=== PATIENT | female | born 1965 | race Caucasian/White ===

== ENCOUNTER 2019-06-19 07:03 | Inpatient (IN) | payer MEDICAID ==
[~2019-06-19] VITALS: Ht 177.8 cm; Wt 103.2 kg
[~2019-06-19 07:03] MED LIST: ESOM40CA PO; FEXO180T72 PO; HYDR-3240; HYDR25TA6 PO; META800T PO; NORE-137 PO; VALS40TA2 PO; VALS80TA3 PO
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
--- NOTE | 2019-06-19 07:58 | NUR ---
ERMD IN TO EVAL PT, PT TO CONT PULSE OX, CARD MONITOR, BP. LABS AND CHEST DX COMPLETED. PT APPEARS ANXIOUS, STATES SHE DOES NOT WANT TO TAKE ANY MEDS FOR ANXIETY.
[2019-06-19] MEDS ORDERED: LORazepam 1MG TABLET PO PRN (08:00)
[2019-06-19 08:20] LABS: BASOPHILS # (AUTO) 0.04 x10^3/uL (0-0.1); BASOPHILS % (AUTO) 1 % (0-1); EOSINOPHILS # (AUTO) 0.01 x10^3/uL (0-0.4); EOSINOPHILS % (AUTO) 0 % (1-7); LYMPHOCYTES # (AUTO) 0.71 x10^3/uL (1-3.4); LYMPHOCYTES % (AUTO) 9 % (22-44); MD NO; MEAN CORPUSCULAR HEMOGLOBIN 29.8 pg (27.0-34.8); MEAN CORPUSCULAR HGB CONC 33.2 g/dL (32.4-35.8); MEAN CORPUSCULAR VOLUME 89.8 fL (80-100); MEAN PLATELET VOLUME 9.6 fL (7.4-10.4); MONOCYTES # (AUTO) 0.73 x10^3/uL (0.2-0.8); MONOCYTES % (AUTO) 9 % (2-9); NEUTROPHILS # (AUTO) 6.57 x10^3/uL (1.8-6.8); NEUTROPHILS % (AUTO) 82 % (42-75); PLATELET COUNT 158 x10^3/uL (130-400); RED BLOOD COUNT 5.08 x10^6/uL (3.82-5.3); RED CELL DISTRIBUTION WIDTH 13.9 % (9.6-15.2)
[2019-06-19 08:30] LABS: ALBUMIN 3.7 g/dL (3.4-5.0); ANION GAP 10 mmol/L (5-15); CALCIUM 9.1 mg/dL (8.5-10.1); CHLORIDE 96 mmol/L (98-107)
[2019-06-19 08:35] LABS: ALANINE AMINOTRANSFERASE 121 U/L (12-78); ALKALINE PHOSPHATASE 117 U/L (45-117); BILIRUBIN,TOTAL 1.5 mg/dL (0.2-1.0); CREATININE 1.13 mg/dL (0.55-1.02); T4 (THYROXINE) 13.9 mcg/dL (4.8-13.9); TOTAL PROTEIN 8.2 g/dL (6.4-8.2); TROPONIN I < 0.015 ng/mL (0.000-0.045)
--- NOTE | 2019-06-19 09:57 | NUR ---
PT TO BE ADMITTED, PIV INITIATED. PT UPDATED ON POC. PT VERY TEARFUL, CRYING IN ROOM, SHE CONTINUES TO REFUSE ATIVAN DOSE. PT CALMED ABLE, NO OTHER NEEDS AT THIS TIME
--- NOTE | 2019-06-19 11:00 | NUR ---
PT REMAINS TEARFUL, C/O PAIN AT IV SITE. SITE C/D/I NO EVIDENCE OF INFILTRATION. SITE WRAP FOR COMFORT
--- NOTE | 2019-06-19 11:45 | NUR ---
TASK RN: RECEIVED REPORT FROM KARL AVILA.
--- NOTE | 2019-06-19 12:05 | NUR ---
TASK RN: PT REQUESTING TO RESTART PIV. PT REQUESTS NEW IV IN LEFT AC AREA. NEW IV PLACED. NO COMPLICATIONS. PT STATES "THIS ONE FEELS MUCH BETTER." D/C RIGHT PIV WITH TIP INTACT. PRESSURE DRESSING APPLIED. HARRISON
--- NOTE | 2019-06-19 12:27 | NUR ---
TASK RN: BEDSIDE REPORT TO KARL AVILA.
[2019-06-19] MEDS ORDERED: ACETAMINOPHEN 325 MG TABLET PO PRN (13:00)
[2019-06-19] MEDS ORDERED: ONDANSETRON ODT 4 MG PO PRN (13:00)
[2019-06-19] MEDS ORDERED: ONDANSETRON 2MG/ML, 2ML IVPush PRN (13:00)
[2019-06-19] MEDS ORDERED: POTASSIUM CHLORIDE 20 MEQ PACKET PO ONE (13:00)
[2019-06-19 13:34] LABS: HCT (SEDRATE) 46.2 % (34.6-47.8)
[2019-06-19] MEDS ORDERED: ENOXAPARIN 40 MG/0.4 ML ONE (13:41)
--- NOTE | 2019-06-19 13:46 | NUR ---
PT IN IMAGING AT THIS TIME, LUNCH TRAY ORDERED FOR PT, REQUEST FOR MEDICATIONS SENT TO PHARM
[2019-06-19 13:50] LABS: TROPONIN I < 0.015 ng/mL (0.000-0.045)
--- NOTE | 2019-06-19 13:55 | NUR ---
REPORT GIVEN TO MARILU BLACKBURN
[2019-06-19 14:08] LABS: HEMOGLOBIN A1C 5.5 % (4.2-6.3)
[2019-06-19] MEDS ORDERED: GADOTERATE 10 MMOL/20 ML SYR ONE (14:38)
[2019-06-19] MEDS: TEMPLATE NON-FORMULARY MED. (Metaxalone** 800 MG) PO SCH ×2 (16:00→21:00)
[2019-06-19 16:34] VITALS: BP 112/77
[2019-06-19] MEDS: ENOXAPARIN 40 MG/0.4 ML SQ SCH (16:34)
[2019-06-19] MEDS: NEUTRA PHOS K 250 MG TABLET PO SCH ×2 (16:34→20:09)
[2019-06-19] MEDS: GABAPENTIN 400 MG CAPSULE PO SCH ×2 (16:34→20:16)
[2019-06-19 16:35] VITALS: BP 107/78
[2019-06-19 16:36] VITALS: BP 107/74
[2019-06-19 18:49] LABS: MICROSCOPIC INDICATED
[2019-06-19 19:02] LABS: CULTURE INDICATED? YES
[2019-06-19 19:18] LABS: TROPONIN I < 0.015 ng/mL (0.000-0.045)
[2019-06-19] MEDS ORDERED: LEVO50TA5 PO (20:26)
[2019-06-19 20:42] VITALS: BP 95/67
[2019-06-20] VITALS (7 sets, daily range): BP systolic 93–139; BP diastolic 61–92
[2019-06-20] MEDS ORDERED: PANTOPROZOLE 40MG TABLET PO SCH (06:00)
[2019-06-20 06:23] LABS: BASOPHILS # (AUTO) 0.04 x10^3/uL (0-0.1); BASOPHILS % (AUTO) 0 % (0-1); EOSINOPHILS # (AUTO) 0.03 x10^3/uL (0-0.4); EOSINOPHILS % (AUTO) 0 % (1-7); LYMPHOCYTES # (AUTO) 0.96 x10^3/uL (1-3.4); LYMPHOCYTES % (AUTO) 11 % (22-44); MD NO; MEAN CORPUSCULAR HEMOGLOBIN 29.3 pg (27.0-34.8); MEAN CORPUSCULAR HGB CONC 32.8 g/dL (32.4-35.8); MEAN CORPUSCULAR VOLUME 89.1 fL (80-100); MEAN PLATELET VOLUME 9.3 fL (7.4-10.4); MONOCYTES # (AUTO) 1.08 x10^3/uL (0.2-0.8); MONOCYTES % (AUTO) 12 % (2-9); NEUTROPHILS # (AUTO) 6.91 x10^3/uL (1.8-6.8); NEUTROPHILS % (AUTO) 77 % (42-75); PLATELET COUNT 160 x10^3/uL (130-400); RED BLOOD COUNT 5.12 x10^6/uL (3.82-5.3); RED CELL DISTRIBUTION WIDTH 13.8 % (9.6-15.2)
[2019-06-20 06:33] LABS: ALBUMIN 3.6 g/dL (3.4-5.0); ANION GAP 9 mmol/L (5-15); CHLORIDE 98 mmol/L (98-107)
[2019-06-20 06:37] LABS: ALANINE AMINOTRANSFERASE 98 U/L (12-78); ALKALINE PHOSPHATASE 115 U/L (45-117); BILIRUBIN,TOTAL 1.3 mg/dL (0.2-1.0); CREATININE 0.93 mg/dL (0.55-1.02); TOTAL PROTEIN 7.9 g/dL (6.4-8.2)
[2019-06-20] MEDS ORDERED: NEXIUM 40 MG HOMEMEDPO SCH (09:00)
[2019-06-20] MEDS ORDERED: ALLEGRA 180 MG HOMEMEDPO SCH (09:00)
[2019-06-20] MEDS ORDERED: CETIRIZINE 10 MG TABLET PO SCH (09:00)
[2019-06-20] MEDS: GABAPENTIN 400 MG CAPSULE PO SCH ×3 (09:26→21:23)
[2019-06-20] MEDS: TEMPLATE NON-FORMULARY MED. (Metaxalone** 800 MG) PO SCH ×2 (09:27→17:56)
[2019-06-20] MEDS: NEUTRA PHOS K 250 MG TABLET PO SCH ×3 (09:27→21:22)
[2019-06-20] MEDS ORDERED: LEVOTHYROXINE 50 MCG TABLET PO SCH (11:30)
[2019-06-20] MEDS ORDERED: POTASSIUM CHLORIDE 40 MEQ in SODIUM CHLORIDE 0.45% 1,000 ML IV SCH (11:30)
[2019-06-20] MEDS: ENOXAPARIN 40 MG/0.4 ML SQ SCH (17:56)
[2019-06-20 18:38] LABS: BASOPHILS # (AUTO) 0.04 x10^3/uL (0-0.1); BASOPHILS % (AUTO) 1 % (0-1); EOSINOPHILS # (AUTO) 0.11 x10^3/uL (0-0.4); EOSINOPHILS % (AUTO) 1 % (1-7); LYMPHOCYTES # (AUTO) 1.49 x10^3/uL (1-3.4); LYMPHOCYTES % (AUTO) 17 % (22-44); MD NO; MEAN CORPUSCULAR HEMOGLOBIN 29.5 pg (27.0-34.8); MEAN CORPUSCULAR HGB CONC 32.6 g/dL (32.4-35.8); MEAN CORPUSCULAR VOLUME 90.4 fL (80-100); MEAN PLATELET VOLUME 10.2 fL (7.4-10.4); MONOCYTES % (AUTO) 10 % (2-9); NEUTROPHILS # (AUTO) 6.46 x10^3/uL (1.8-6.8); NEUTROPHILS % (AUTO) 72 % (42-75); PLATELET COUNT 180 x10^3/uL (130-400); RED BLOOD COUNT 5.13 x10^6/uL (3.82-5.3); RED CELL DISTRIBUTION WIDTH 14.1 % (9.6-15.2)
[2019-06-20] MEDS: CEFTRIAXONE PMX 1GM/50ML 50 ML IV SCH (23:04)
[2019-06-21 03:50] VITALS: BP 123/82
[2019-06-21] MEDS: NEXIUM 40 MG HOMEMEDPO SCH (06:00)
[2019-06-21] MEDS: ALLEGRA 180 MG HOMEMEDPO SCH (06:00)
[2019-06-21] MEDS: LEVOTHYROXINE 50 MCG TABLET PO SCH (06:06)
[2019-06-21] MEDS: GABAPENTIN 400 MG CAPSULE PO SCH ×3 (06:06→21:17)
[2019-06-21] MEDS: NEUTRA PHOS K 250 MG TABLET PO SCH ×3 (06:06→21:17)
[2019-06-21 06:24] LABS: ALANINE AMINOTRANSFERASE 94 U/L (12-78); ALBUMIN 3.3 g/dL (3.4-5.0); ANION GAP 9 mmol/L (5-15); CALCIUM 8.6 mg/dL (8.5-10.1); CHLORIDE 99 mmol/L (98-107); CREATININE 0.73 mg/dL (0.55-1.02)
[2019-06-21 06:26] LABS: ALKALINE PHOSPHATASE 116 U/L (45-117); TOTAL PROTEIN 7.9 g/dL (6.4-8.2)
[2019-06-21 07:11] VITALS: BP 122/79
[2019-06-21] MEDS: POTASSIUM CHLORIDE 20 MEQ TAB.ER.PRT PO SCH ×2 (08:45→16:04)
[2019-06-21 10:58] LABS: CULTURE INDICATED? NO; MICROSCOPIC NOT IND
[2019-06-21 11:06] LABS: HCT (SEDRATE) 44.5 % (34.6-47.8)
[2019-06-21] MEDS ORDERED: POTASSIUM CHLORIDE 20 MEQ TAB.ER.PRT PO ONE (12:00)
[2019-06-21 12:07] VITALS: BP 131/86
[2019-06-21 15:51] LABS: POTASSIUM,URINE RANDOM 33 mmol/L; SODIUM,URINE RANDOM 7 mmol/L
[2019-06-21] MEDS: ENOXAPARIN 40 MG/0.4 ML SQ SCH (16:04)
[2019-06-21 16:05] VITALS: BP 126/84
[2019-06-21 20:11] VITALS: BP 111/75
[2019-06-21] MEDS: CEFTRIAXONE PMX 1GM/50ML 50 ML IV SCH (23:00)
[2019-06-22] MEDS: CEFTRIAXONE PMX 1GM/50ML 50 ML IV SCH (00:17)
[2019-06-22 00:20] VITALS: BP 119/80
[2019-06-22 04:00] VITALS: BP 114/70
[2019-06-22] MEDS: GABAPENTIN 400 MG CAPSULE PO SCH (05:10)
[2019-06-22] MEDS: LEVOTHYROXINE 50 MCG TABLET PO SCH (05:10)
[2019-06-22] MEDS: NEUTRA PHOS K 250 MG TABLET PO SCH (05:12)
[2019-06-22] MEDS: ALLEGRA 180 MG HOMEMEDPO SCH (05:13)
[2019-06-22] MEDS: NEXIUM 40 MG HOMEMEDPO SCH (05:14)
[2019-06-22 06:00] LABS: ANION GAP 6 mmol/L (5-15); CALCIUM 8.7 mg/dL (8.5-10.1); CHLORIDE 101 mmol/L (98-107)
[2019-06-22 06:02] LABS: CREATININE 0.81 mg/dL (0.55-1.02)
[2019-06-22 07:53] VITALS: BP 128/79
[2019-06-22] MEDS: POTASSIUM CHLORIDE 20 MEQ TAB.ER.PRT PO SCH (08:19)
[2019-06-22] MEDS ORDERED: POTA20TA6 PO (09:58)
[2019-06-22] MEDS ORDERED: PHOS250T3 PO (09:58)
[2019-06-22] MEDS ORDERED: GABA-827 PO (09:58)
[2019-06-22] MEDS ORDERED: FLU VACC QS2019-20 36MOS UP/PF 0.5 ML IM-VACC ONE (11:30)
== END 2019-06-22 11:48 | disposition home or self-care (01) | DRG 207 ==
LOC: ED 10:08 → EDIP 10:10 → 4WST 14:44 → 4EST 06-20 04:04
PROVIDERS: ADMIT Internal Medicine; ATTEND Internal Medicine
DX: I95.9 Hypotension, unspecified (principal); E87.1 Hypo-osmolality and hyponatremia; K76.0 Fatty (change of) liver, not elsewhere classified; E03.9 Hypothyroidism, unspecified; E66.9 Obesity, unspecified; Z68.32 Body mass index [BMI] 32.0-32.9, adult; Z88.6 Allergy status to analgesic agent; Z88.8 Allergy status to other drugs, medicaments and biological substances; E86.0 Dehydration; E87.6 Hypokalemia; F12.90 Cannabis use, unspecified, uncomplicated; F32.9 Major depressive disorder, single episode, unspecified; G89.29 Other chronic pain; I10 Essential (primary) hypertension; Z53.20 Procedure and treatment not carried out because of patient's decision for unspecified reasons; Z63.4 Disappearance and death of family member; Z80.7 Family history of other malignant neoplasms of lymphoid, hematopoietic and related tissues; Z87.891 Personal history of nicotine dependence; Z98.1 Arthrodesis status
CPT/HCPCS: 36415; 70450; 70553; 71045; 72156; 76700; 80048; 80053; 81001; 81003; 82533; 82570; 83036; 83735; 84100; 84132; 84133; 84300; 84436; 84443; 84484; 85025; 85651; 86140; 87040; 87086; 90686; 93005; 93308; 93321; 93325; 99285; G0378; J0696; J1650; J3480; A9575

== ENCOUNTER 2019-09-05 13:23 | Outpatient (CLI) | payer MEDICAID ==
[~2019-09-05 13:23] MED LIST changes: +GABA-827 PO; +LEVO50TA5 PO; +PHOS250T3 PO; +POTA20TA6 PO
== END 2019-09-05 23:59 | disposition home or self-care (01) ==
LOC: RAD 13:23
DX: M48.02 Spinal stenosis, cervical region (principal); M47.819 Spondylosis without myelopathy or radiculopathy, site unspecified
CPT/HCPCS: 72141

== ENCOUNTER 2019-10-29 13:03 | Inpatient (IN) | payer MEDICAID ==
[~2019-10-29] VITALS: Ht 177.8 cm; Wt 112.8 kg
[2019-10-29] MEDS ORDERED: SODIUM CHLORIDE 0.9% 1,000 ML IV ONE (13:10)
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
[2019-10-29] MEDS ORDERED: PLEASE ENTER HEIGHT AND WEIGHT MC SCH (13:30)
[2019-10-29] MEDS ORDERED: SODIUM CHLORIDE FLUSH 10ML SYR IVF ONE (13:30)
[2019-10-29 13:41] LABS: BASOPHILS % (AUTO) 0 % (0-1); EOSINOPHILS % (AUTO) 0 % (1-7); LYMPHOCYTES # (AUTO) 1.23 x10^3/uL (1-3.4); LYMPHOCYTES % (AUTO) 11 % (22-44); MD NO; MEAN CORPUSCULAR HEMOGLOBIN 28.7 pg (27.0-34.8); MEAN CORPUSCULAR HGB CONC 32.8 g/dL (32.4-35.8); MEAN CORPUSCULAR VOLUME 87.5 fL (80-100); MEAN PLATELET VOLUME 9.1 fL (7.4-10.4); MONOCYTES # (AUTO) 0.24 x10^3/uL (0.2-0.8); MONOCYTES % (AUTO) 2 % (2-9); NEUTROPHILS # (AUTO) 9.41 x10^3/uL (1.8-6.8); NEUTROPHILS % (AUTO) 87 % (42-75); PLATELET COUNT 354 x10^3/uL (130-400); RED BLOOD COUNT 4.18 x10^6/uL (3.82-5.3); RED CELL DISTRIBUTION WIDTH 15.7 % (9.6-15.2)
[2019-10-29 13:53] LABS: ALANINE AMINOTRANSFERASE 53 U/L (12-78); ALBUMIN 1.7 g/dL (3.4-5.0); ANION GAP 10 mmol/L (5-15); CALCIUM 8.1 mg/dL (8.5-10.1); CHLORIDE 98 mmol/L (98-107)
[2019-10-29 13:55] LABS: ALKALINE PHOSPHATASE 198 U/L (45-117); BILIRUBIN,TOTAL 4.7 mg/dL (0.2-1.0); CREATININE 1.93 mg/dL (0.55-1.02); TOTAL PROTEIN 7.4 g/dL (6.4-8.2)
--- NOTE | 2019-10-29 14:30 | NUR ---
REPORT TO HINA FOR BREAK
--- NOTE | 2019-10-29 14:42 | NUR ---
TASK RN: PT PROVIDED WITH WARM BLANKET. HUBERT PAWS WARMER. IV NS INFUSING ORDERED. PT AWARE OF WAITING FOR ADMIT ORDERS/ROOM ASSIGNMENT. NO OTHER NEEDS EXPRESSED AT THIS TIME.
--- NOTE | 2019-10-29 15:05 | NUR ---
REPORT TO JAY BARAJAS
[2019-10-29] MEDS ORDERED: ONDANSETRON 2MG/ML, 2ML IVPush PRN (15:30)
[2019-10-29] MEDS ORDERED: ONDANSETRON ODT 4 MG PO PRN (15:30)
--- NOTE | 2019-10-29 15:35 | NUR ---
REPORT TO AI BARAJAS. PT INFORMED SHE IS READY FOR TRANSPORT, AND THAT THE TV UP IN HER ROOM SHOULD WORK BETTER THAN THE ONE IN HER ROOM NOW. PT VERY UPSET THAT WE CAN'T FIX THE TV FOR HER RIGHT NOW. PT STABLE.
[2019-10-29] MEDS: Metaxalone** 800 MG HOMEMEDPO SCH ×2 (16:00→21:00)
[2019-10-29] MEDS: HYDROcodone/APAP 5/325 TABLET PO SCH (16:58)
[2019-10-29] MEDS: CEFTRIAXONE PMX 2GM/50ML 50 ML IV SCH (17:18)
[2019-10-29] MEDS: LACTOBACILLUS CHEW TABLET PO SCH ×3 (18:00→21:00)
[2019-10-29] MEDS: GABAPENTIN 400 MG CAPSULE PO SCH (18:30)
[2019-10-29] MEDS: NEUTRA PHOS K 250 MG TABLET PO SCH (18:31)
[2019-10-29] MEDS: NS + 40MEQ KCL 1,000 ML IV SCH (18:31)
[2019-10-29 19:08] VITALS: BP 100/67
[2019-10-29] MEDS: POTASSIUM CHLORIDE 20 MEQ TAB.ER.PRT PO SCH (21:32)
[2019-10-29] MEDS: HEPARIN 5,000 UNITS/ML, 1ML SQ SCH (21:36)
[2019-10-30] MEDS: HYDROcodone/APAP 5/325 TABLET PO SCH ×3 (01:15→16:58)
[2019-10-30] MEDS: GABAPENTIN 400 MG CAPSULE PO SCH ×3 (01:15→17:03)
[2019-10-30] MEDS: NEUTRA PHOS K 250 MG TABLET PO SCH ×3 (01:15→17:04)
[2019-10-30 01:24] VITALS: BP 104/69
[2019-10-30] MEDS: HEPARIN 5,000 UNITS/ML, 1ML SQ SCH ×3 (05:23→21:18)
[2019-10-30 05:50] LABS: ALANINE AMINOTRANSFERASE 39 U/L (12-78); ALBUMIN 1.5 g/dL (3.4-5.0); ANION GAP 8 mmol/L (5-15); CALCIUM 7.9 mg/dL (8.5-10.1); CHLORIDE 108 mmol/L (98-107); CREATININE 1.13 mg/dL (0.55-1.02)
[2019-10-30 05:52] LABS: ALKALINE PHOSPHATASE 148 U/L (45-117); BILIRUBIN,TOTAL 2.8 mg/dL (0.2-1.0); TOTAL PROTEIN 6.2 g/dL (6.4-8.2)
[2019-10-30] MEDS ORDERED: PANTOPRAZOLE 40MG TABLET PO SCH (06:00)
[2019-10-30 06:08] LABS: MEAN CORPUSCULAR HEMOGLOBIN 28.8 pg (27.0-34.8); MEAN CORPUSCULAR HGB CONC 32.9 g/dL (32.4-35.8); MEAN CORPUSCULAR VOLUME 87.4 fL (80-100); MEAN PLATELET VOLUME 9.4 fL (7.4-10.4); PLATELET COUNT 279 x10^3/uL (130-400); RED BLOOD COUNT 3.43 x10^6/uL (3.82-5.3); RED CELL DISTRIBUTION WIDTH 15.8 % (9.6-15.2)
[2019-10-30 06:26] LABS: BASOPHILS % (AUTO) 0 % (0-1); EOSINOPHILS # (AUTO) 0.13 x10^3/uL (0-0.4); EOSINOPHILS % (AUTO) 2 % (1-7); LYMPHOCYTES # (AUTO) 1.06 x10^3/uL (1-3.4); LYMPHOCYTES % (AUTO) 16 % (22-44); MD SCAN; MONOCYTES # (AUTO) 0.45 x10^3/uL (0.2-0.8); MONOCYTES % (AUTO) 7 % (2-9); NEUTROPHILS # (AUTO) 5.01 x10^3/uL (1.8-6.8); NEUTROPHILS % (AUTO) 75 % (42-75)
[2019-10-30 08:00] VITALS: BP 101/71
[2019-10-30] MEDS: POTASSIUM CHLORIDE 20 MEQ TAB.ER.PRT PO SCH ×2 (08:08→21:17)
[2019-10-30] MEDS: LACTOBACILLUS CHEW TABLET PO SCH ×3 (08:08→21:00)
[2019-10-30] MEDS: Metaxalone** 800 MG HOMEMEDPO SCH ×3 (08:41→21:00)
[2019-10-30] MEDS ORDERED: LEVOTHYROXINE 50 MCG TABLET PO SCH (09:00)
[2019-10-30] MEDS ORDERED: LORATADINE 10 MG TABLET PO SCH (09:00)
[2019-10-30] MEDS ORDERED: CHLORHEXIDINE 15 ML UDC ONE (09:07)
[2019-10-30] MEDS ORDERED: CHLORHEXIDINE 15 ML UDC MM ONE (09:30)
[2019-10-30] MEDS ORDERED: SUCCINYLCHOLINE 20 MG/ML, 10ML ONE (09:48)
[2019-10-30] MEDS ORDERED: PROPOFOL 10 MG/ML, 20ML ONE (09:48)
[2019-10-30] MEDS ORDERED: FENTANYL PF 100 MCG/2ML IV PRN (10:30)
[2019-10-30] MEDS ORDERED: ACETAMINOPHEN 325 MG TABLET PO PRN (10:30)
[2019-10-30] MEDS ORDERED: OMNIPAQUE 350 MG/ML, 50 ML BOTTLE ONE (10:30)
[2019-10-30] MEDS ORDERED: ONDANSETRON 2MG/ML, 2ML IV PRN (10:30)
[2019-10-30 12:25] VITALS: BP 107/76
[2019-10-30] MEDS: NS + 40MEQ KCL 1,000 ML IV SCH (15:25)
[2019-10-30] MEDS: CEFTRIAXONE PMX 2GM/50ML 50 ML IV SCH (17:31)
[2019-10-30 20:28] VITALS: BP 112/76
[2019-10-31 00:47] VITALS: BP 136/93
[2019-10-31] MEDS: NEUTRA PHOS K 250 MG TABLET PO SCH ×3 (00:53→18:34)
[2019-10-31] MEDS: HYDROcodone/APAP 5/325 TABLET PO SCH ×2 (00:53→08:54)
[2019-10-31] MEDS: GABAPENTIN 400 MG CAPSULE PO SCH ×3 (00:53→15:49)
[2019-10-31] MEDS: HEPARIN 5,000 UNITS/ML, 1ML SQ SCH ×3 (05:00→22:31)
[2019-10-31 05:06] LABS: BASOPHILS # (AUTO) 0.04 x10^3/uL (0-0.1); BASOPHILS % (AUTO) 1 % (0-1); EOSINOPHILS % (AUTO) 3 % (1-7); LYMPHOCYTES # (AUTO) 1.74 x10^3/uL (1-3.4); LYMPHOCYTES % (AUTO) 25 % (22-44); MD NO; MEAN CORPUSCULAR HEMOGLOBIN 28.4 pg (27.0-34.8); MEAN CORPUSCULAR HGB CONC 32.6 g/dL (32.4-35.8); MONOCYTES # (AUTO) 0.29 x10^3/uL (0.2-0.8); MONOCYTES % (AUTO) 4 % (2-9); NEUTROPHILS # (AUTO) 4.71 x10^3/uL (1.8-6.8); NEUTROPHILS % (AUTO) 68 % (42-75); PLATELET COUNT 375 x10^3/uL (130-400); RED BLOOD COUNT 3.75 x10^6/uL (3.82-5.3); RED CELL DISTRIBUTION WIDTH 16.5 % (9.6-15.2)
[2019-10-31 05:13] LABS: ALBUMIN 1.7 g/dL (3.4-5.0); ANION GAP 7 mmol/L (5-15); CALCIUM 8.1 mg/dL (8.5-10.1); CHLORIDE 108 mmol/L (98-107)
[2019-10-31 05:18] LABS: ALANINE AMINOTRANSFERASE 39 U/L (12-78); ALKALINE PHOSPHATASE 159 U/L (45-117); BILIRUBIN,TOTAL 1.6 mg/dL (0.2-1.0); TOTAL PROTEIN 6.7 g/dL (6.4-8.2)
[2019-10-31] MEDS: LEVOTHYROXINE 50 MCG TABLET PO SCH (05:54)
[2019-10-31] MEDS: NS + 40MEQ KCL 1,000 ML IV SCH (05:54)
[2019-10-31 07:28] VITALS: BP 112/76
[2019-10-31] MEDS ORDERED: BUPIVACAINE/PF-EPI 0.5% 1:200K ONE (07:41)
[2019-10-31] MEDS: SODIUM CHLORIDE 0.9% 1,000 ML IV SCH ×2 (08:46→22:31)
[2019-10-31] MEDS: POTASSIUM CHLORIDE 20 MEQ TAB.ER.PRT PO SCH ×2 (08:54→22:34)
[2019-10-31] MEDS: Metaxalone** 800 MG HOMEMEDPO SCH ×3 (08:54→21:00)
[2019-10-31] MEDS: LACTOBACILLUS CHEW TABLET PO SCH ×3 (08:55→21:00)
[2019-10-31] MEDS ORDERED: FENTANYL PF 250 MCG/5ML ONE (11:43)
[2019-10-31] MEDS ORDERED: MIDAZOLAM 1 MG/ML, 2ML ONE (11:43)
[2019-10-31] MEDS ORDERED: PROPOFOL 50 ML ONE (11:43)
[2019-10-31] MEDS ORDERED: BUPIVACAINE/PF-EPI 0.5% 1:200K INFIL ONE (12:13)
[2019-10-31] MEDS ORDERED: LABETALOL 5MG/ML, 20ML IV PRN (12:30)
[2019-10-31] MEDS ORDERED: PROMETHAZINE 25 MG/ML, 1ML IV PRN (12:30)
[2019-10-31] MEDS ORDERED: DIAZEPAM 5 MG/ML, 2ML IVPush PRN (12:30)
[2019-10-31] MEDS ORDERED: DIPHENHYDRAMINE 50 MG/ML, 1ML IVPush PRN (12:30)
[2019-10-31] MEDS ORDERED: ROCURONIUM 10MG/ML,5ML ONE (12:30)
[2019-10-31] MEDS ORDERED: MEPERIDINE/PF 25MG/ML,1ML IVPush PRN (12:30)
[2019-10-31] MEDS ORDERED: ACETAMINOPHEN 325 MG TABLET PO PRN (12:30)
[2019-10-31] MEDS ORDERED: MIDAZOLAM 1 MG/ML, 2ML IV PRN (12:30)
[2019-10-31] MEDS ORDERED: ONDANSETRON 2MG/ML, 2ML IV PRN (12:30)
[2019-10-31] MEDS ORDERED: EPHEDRINE 50 MG/ML, 1ML IM PRN (12:30)
[2019-10-31] MEDS ORDERED: ONDANSETRON ODT 8 MG PO PRN (12:30)
[2019-10-31] MEDS ORDERED: EPHEDRINE 50 MG/ML, 1ML IVPush PRN (12:30)
[2019-10-31] MEDS ORDERED: OXYcodone 5 MG/5 ML ORAL.SOL UDC PO PRN (12:30)
[2019-10-31] MEDS ORDERED: SUCCINYLCHOLINE 20 MG/ML, 10ML ONE (12:30)
[2019-10-31] MEDS ORDERED: DEXAMETHASONE 4 MG/ML, 1ML ONE (12:36)
[2019-10-31] MEDS ORDERED: ONDANSETRON 2MG/ML, 2ML ONE (12:36)
[2019-10-31] MEDS ORDERED: ACETAMINOPHEN 650 MG/20.3 ML UDC ONE (13:36)
[2019-10-31] MEDS ORDERED: FENTANYL PF 100 MCG/2ML ONE (13:36)
[2019-10-31] MEDS ORDERED: OXYcodone 5 MG/5 ML ORAL.SOL UDC ONE (13:36)
[2019-10-31] MEDS: FENTANYL PF 100 MCG/2ML IV PRN ×2 (13:42→13:47)
[2019-10-31] MEDS ORDERED: HYDROmorphone 1 MG/ML, 1ML INJ ONE (13:51)
[2019-10-31] MEDS: HYDROmorphone 2 MG/ML, 1ML IVPush PRN ×2 (13:54→14:04)
[2019-10-31 15:20] VITALS: BP 134/85
[2019-10-31] MEDS: KETOROLAC 30 MG/1 ML IV PRN (15:50)
[2019-10-31] MEDS: HYDROcodone/APAP 5/325 TABLET PO PRN ×2 (15:51→22:30)
[2019-10-31] MEDS ORDERED: MORPHINE SULFATE 4 MG/ML, 1ML IVPush PRN (16:00)
[2019-10-31] MEDS: CEFTRIAXONE PMX 2GM/50ML 50 ML IV SCH (18:35)
[2019-10-31 19:30] VITALS: BP 124/75
[2019-11-01] VITALS: BP 137/89
[2019-11-01 02:58] VITALS: BP 118/76
[2019-11-01] MEDS: NEUTRA PHOS K 250 MG TABLET PO SCH ×3 (03:02→17:55)
[2019-11-01] MEDS: KETOROLAC 30 MG/1 ML IV PRN ×2 (03:02→16:50)
[2019-11-01] MEDS: GABAPENTIN 400 MG CAPSULE PO SCH ×3 (03:02→17:55)
[2019-11-01 04:42] VITALS: BP 133/86
[2019-11-01 05:44] LABS: ANION GAP 8 mmol/L (5-15); CALCIUM 7.6 mg/dL (8.5-10.1); CHLORIDE 111 mmol/L (98-107)
[2019-11-01 05:45] LABS: % IRON SATURATION 57 % (20-55); CREATININE 0.79 mg/dL (0.55-1.02); IRON LEVEL 99 mcg/dL (50-170); TOTAL IRON BINDING CAPACITY 175 mcg/dL (250-450)
[2019-11-01] MEDS: HEPARIN 5,000 UNITS/ML, 1ML SQ SCH ×3 (05:57→23:30)
[2019-11-01] MEDS: LEVOTHYROXINE 50 MCG TABLET PO SCH (05:58)
[2019-11-01] MEDS: HYDROcodone/APAP 5/325 TABLET PO PRN ×3 (06:10→19:03)
[2019-11-01 06:42] VITALS: BP 132/88
[2019-11-01] MEDS: POTASSIUM CHLORIDE 20 MEQ TAB.ER.PRT PO SCH ×2 (08:46→21:00)
[2019-11-01] MEDS: Metaxalone** 800 MG HOMEMEDPO SCH ×3 (08:46→23:30)
[2019-11-01] MEDS: LACTOBACILLUS CHEW TABLET PO SCH ×3 (08:47→21:00)
[2019-11-01 08:57] LABS: ALANINE AMINOTRANSFERASE 39 U/L (12-78); ALBUMIN 1.6 g/dL (3.4-5.0)
[2019-11-01 08:59] LABS: ALKALINE PHOSPHATASE 145 U/L (45-117); BILIRUBIN,TOTAL 1.1 mg/dL (0.2-1.0); TOTAL PROTEIN 6.2 g/dL (6.4-8.2)
[2019-11-01] MEDS: SODIUM CHLORIDE 0.9% 1,000 ML IV SCH (12:04)
[2019-11-01 13:32] VITALS: BP 135/82
[2019-11-01] MEDS: CEFTRIAXONE PMX 2GM/50ML 50 ML IV SCH (17:55)
[2019-11-01 18:53] VITALS: BP 147/85
[2019-11-02] MEDS: KETOROLAC 30 MG/1 ML IV PRN (00:07)
[2019-11-02 00:40] VITALS: BP 135/84
[2019-11-02] MEDS: GABAPENTIN 400 MG CAPSULE PO SCH ×2 (01:32→08:12)
[2019-11-02] MEDS: HYDROcodone/APAP 5/325 TABLET PO PRN ×2 (01:32→08:12)
[2019-11-02] MEDS: NEUTRA PHOS K 250 MG TABLET PO SCH ×2 (01:33→08:12)
[2019-11-02] MEDS: SODIUM CHLORIDE 0.9% 1,000 ML IV SCH (01:35)
[2019-11-02 06:45] VITALS: BP 150/98
[2019-11-02] MEDS: LEVOTHYROXINE 50 MCG TABLET PO SCH (07:28)
[2019-11-02] MEDS ORDERED: HYDR-3240 PO (07:39)
[2019-11-02] MEDS ORDERED: AMOX1TAB64 PO (07:39)
[2019-11-02] MEDS: HEPARIN 5,000 UNITS/ML, 1ML SQ SCH (08:11)
[2019-11-02] MEDS: Metaxalone** 800 MG HOMEMEDPO SCH (08:12)
[2019-11-02] MEDS: LACTOBACILLUS CHEW TABLET PO SCH (08:16)
[2019-11-02] MEDS: POTASSIUM CHLORIDE 20 MEQ TAB.ER.PRT PO SCH (08:17)
[2019-11-02] MEDS ORDERED: ONDA4TAB7 PO (09:32)
== END 2019-11-02 10:15 | disposition home or self-care (01) | DRG 710 ==
LOC: ED 13:39 → EDIP 14:47 → 3N 16:30 → 4NE 10-31 14:48
PROVIDERS: ADMIT Internal Medicine; ATTEND Emergency Medicine
PROC: 0FT44ZZ Resection of Gallbladder, Percutaneous Endoscopic Approach (ICD-10-PCS; principal; 2019-10-31 11:30)
DX: A41.9 Sepsis, unspecified organism (principal); N17.0 Acute kidney failure with tubular necrosis; R65.21 Severe sepsis with septic shock; E87.1 Hypo-osmolality and hyponatremia; K80.30 Calculus of bile duct with cholangitis, unspecified, without obstruction; K80.61 Calculus of gallbladder and bile duct with cholecystitis, unspecified, with obstruction; D64.9 Anemia, unspecified; B96.89 Other specified bacterial agents as the cause of diseases classified elsewhere; E03.9 Hypothyroidism, unspecified; E66.9 Obesity, unspecified; E87.6 Hypokalemia; F10.10 Alcohol abuse, uncomplicated; F12.90 Cannabis use, unspecified, uncomplicated; G89.4 Chronic pain syndrome; I10 Essential (primary) hypertension; K27.9 Peptic ulcer, site unspecified, unspecified as acute or chronic, without hemorrhage or perforation; Z80.7 Family history of other malignant neoplasms of lymphoid, hematopoietic and related tissues; Z86.14 Personal history of Methicillin resistant Staphylococcus aureus infection; Z87.11 Personal history of peptic ulcer disease; Z90.49 Acquired absence of other specified parts of digestive tract; Z88.8 Allergy status to other drugs, medicaments and biological substances; Z91.018 Allergy to other foods; Z88.6 Allergy status to analgesic agent
CPT/HCPCS: 36415; 71045; 74328; 80053; 83540; 83550; 83605; 83690; 83735; 85025; 87040; 87077; 87186; 88304; 96360; 96361; 99285; G0378; J0696; J1100; J1170; J1644; J1885; J2250; J2405; J2704; J3010; Q9967; C1769; J0330; J3480; J7030

== ENCOUNTER → 2019-12-10 | Outpatient (CLI) | payer MEDICAID ==
[~2019-12-10] MED LIST changes: +AMOX1TAB64 PO; +HYDR-3240 PO; +ONDA4TAB7 PO
== END | disposition home or self-care (01) ==
LOC: RAD 09:01
DX: M51.34 Other intervertebral disc degeneration, thoracic region (principal); M51.24 Other intervertebral disc displacement, thoracic region; M25.78 Osteophyte, vertebrae; M48.04 Spinal stenosis, thoracic region; M43.8X4 Other specified deforming dorsopathies, thoracic region
CPT/HCPCS: 72146

== ENCOUNTER → 2020-03-25 | Outpatient (CLI) | payer MEDICAID | END | disposition home or self-care (01) | LOC: RAD 12:45 | PROVIDERS: ATTEND Neurological Surgery | DX: M47.23 Other spondylosis with radiculopathy, cervicothoracic region (principal); M43.23 Fusion of spine, cervicothoracic region; M43.26 Fusion of spine, lumbar region; M25.78 Osteophyte, vertebrae; M51.14 Intervertebral disc disorders with radiculopathy, thoracic region; M48.03 Spinal stenosis, cervicothoracic region | CPT/HCPCS: 72125; 72128; 72131; 72141 ==